=== PATIENT | female | born 1980 | race Caucasian/White ===

== ENCOUNTER 2017-02-18 19:52 | Emergency (ER) | payer OTHER ==
--- NOTE | 2017-02-18 20:06 | EDPHY ---
H & P Time Seen by Provider: 02/18/17 19:55 HPI/ROS: CHIEF COMPLAINT: "I think I am throwing up blood" HISTORY OF PRESENT ILLNESS: 36-year-old homeless female arrives via ambulance complaining of 2 days of dark colored emesis and epigastric discomfort. She was getting off of the city bus, an ambulance was nearby and she hailed the ambulance. She is complaining of 2 days of epigastric and left upper quadrant pain with intermittent vomiting and nausea. No radiation of pain. No back pain. No lower abdominal pain. Bowel movements have been normal with no discoloration, no melena, no hematochezia, no diarrhea. PRIMARY CARE PROVIDER:none REVIEW OF SYSTEMS: A ten point review of systems was performed and is negative with the exception of the items mentioned in the HPI PAST MEDICAL & SURGICAL HISTORY: Anemia, alcoholism, cholecystectomy SOCIAL HISTORY: homeless. Traveling from [place] to [place]. PHYSICAL EXAM (Prior to examination, patient consented to physical exam, hands were washed and my usual and customary physical exam procedures followed) 1) GENERAL: Well-developed, well-nourished, alert and oriented. Appears nontoxic. 2) HEAD: Normocephalic, atraumatic 3) HEENT: Pupils equal, round, reactive to light bilaterally. Sclera anicteric. Nasopharynx, oropharynx, clear, no lesions. Moist mucous membranes Ears bilaterally with normal tympanic membranes. 4) NECK: Full range of motion, no meningeal signs. 5) LUNGS: Clear auscultation bilaterally, no wheezes, no rhonchi, no retractions. 6) HEART: Regular rate and rhythm, no murmur, no heave, no gallop. 7) ABDOMEN: tender to palpation left upper quadrant and epigastrium. No guarding, no rebound, no focal tenderness, negative McBurney's, negative Barragan' s, negative Rovsing's, negative peritoneal sign, 8) MUSCULOSKELETAL: Moving all extremities, no focal areas of tenderness, no obvious trauma. No peripheral edema or discoloration. 9) BACK: No CVA tenderness, no midline vertebral tenderness, no fluctuance, no step-off, no obvious trauma, no visual or palpable abnormality. 10) SKIN: No rash, no petechiae. 11)RECTAL (with female nurse Moni at bedside): Normal rectal tone, brown stool on glove. DIFFERENTIAL DIAGNOSIS: In no particular order, including but not limited to biliary colic, cholecystitis, peptic ulcer disease, pancreatitis, and gastroenteritis. This is a partial list of diagnoses considered. These considerations are based on history, physical exam, past history and reassessment. Constitutional: Initial Vital Signs Temperature (C) 36.9 C 02/18/17 19:52 Heart Rate 93 02/18/17 19:52 Respiratory Rate 20 02/18/17 19:52 Blood Pressure 133/77 H 02/18/17 19:52 O2 Sat (%) 98 02/18/17 19:52 O2 Delivery Mode Room Air Allergies/Adverse Reactions: No Known Allergies Allergy (Verified 02/18/17 20:11) Home Medications: Medication Instructions Recorded NK [No Known Home Meds] 02/18/17 Medical Decision Making ED Course/Re-evaluation: 8:07 p.m.: I reviewed the patient's medical records from emergency department visit prescription [facility] dated 5 days ago which point she complained of similar symptoms, she is anemic at that time with H&H of 7.1 and 25.4 9:55 p.m.: Patient has been re-evaluated with serial exam she has been observed ambulating around the emergency department requesting to leave. She remains normotensive, normal heart rate. I reviewed with her her continued anemia today which I think is subacute, she has negative stool occult blood and has had no vomiting in the emergency department. She has been given GI cocktail and feels resolution of her epigastric discomfort. Doubt cardiac etiology. Doubt acute pancreatitis. Think she can be discharged however have informed her that she needs [facility] Care and management in consultation with primary supervising physician Dr Ely . - Data Points Laboratory Results: Laboratory Results 02/18/17 20:07 02/18/17 20:07 02/18/17 02/18/17 02/18/17 20:21 20:07 20:07 WBC RBC Hgb Hct MCV MCH MCHC RDW Plt Count MPV Neut % (Auto) Lymph % (Auto) [place] % (Auto) Eos % (Auto) Baso % (Auto) Nucleat RBC Rel Count Absolute Neuts (auto) Absolute Lymphs (auto) Absolute Monos (auto) Absolute Eos (auto) Absolute Basos (auto) Absolute Nucleated RBC Immature Gran % Immature Gran # Sodium 136 mEq/L mEq/L (134-144) Potassium 4.4 mEq/L mEq/L (3.5-5.2) Chloride 101 mEq/L mEq/L (97-110) Carbon Dioxide 22 mEq/l mEq/l (22-31) Anion Gap 13 mEq/L mEq/L (8-16) BUN 14 mg/dL mg/dL (7-23) Creatinine 0.8 mg/dL mg/dL (0.6-1.0) Estimated GFR > 60 Glucose 95 mg/dL mg/dL (70-100) Calcium 9.5 mg/dL mg/dL (8.5-10.4) Total Bilirubin 0.3 mg/dL mg/dL (0.1-1.4) Conjugated Bilirubin 0.2 mg/dL mg/dL (0.0-0.5) Unconjugated Bilirubin 0.1 mg/dL mg/dL (0.0-1.1) AST 100 IU/L H IU/L (14-46) ALT 56 IU/L H IU/L (9-52) Alkaline Phosphatase 184 IU/L H IU/L (38-126) Total Protein 7.9 g/dL g/dL (6.3-8.2) Albumin 3.9 g/dL g/dL (3.5-5.0) Lipase 460 IU/L H IU/L (23-300) Beta HCG, Qual NEGATIVE Stool Occult Bld Scrn NEGATIVE (NEGATIVE) 02/18/17 20:07 WBC 7.99 10^3/uL 10^3/uL (3.80-9.50) RBC 3.35 10^6/uL L 10^6/uL (4.18-5.33) Hgb 7.9 g/dL L g/dL (12.6-16.3) Hct 27.0 % L % (38.0-47.0) MCV 80.6 fL L fL (81.5-99.8) MCH 23.6 pg L pg (27.9-34.1) MCHC 29.3 g/dL L g/dL (32.4-36.7) RDW 18.6 % H % (11.5-15.2) Plt Count 413 10^3/uL H 10^3/uL (150-400) MPV 10.2 fL fL (8.7-11.7) Neut % (Auto) 62.7 % % (39.3-74.2) Lymph % (Auto) 19.1 % % (15.0-45.0) [place] % (Auto) 12.3 % % (4.5-13.0) Eos % (Auto) 3.6 % % (0.6-7.6) Baso % (Auto) 1.8 % H % (0.3-1.7) Nucleat RBC Rel Count 0.0 % % (0.0-0.2) Absolute Neuts (auto) 5.01 10^3/uL 10^3/uL (1.70-6.50) Absolute Lymphs (auto) 1.53 10^3/uL 10^3/uL (1.00-3.00) Absolute Monos (auto) 0.98 10^3/uL H 10^3/uL (0.30-0.80) Absolute Eos (auto) 0.29 10^3/uL 10^3/uL (0.03-0.40) Absolute Basos (auto) 0.14 10^3/uL H 10^3/uL (0.02-0.10) Absolute Nucleated RBC 0.00 10^3/uL 10^3/uL (0-0.01) Immature Gran % 0.5 % % (0.0-1.1) Immature Gran # 0.04 10^3/uL 10^3/uL (0.00-0.10) Sodium Potassium Chloride Carbon Dioxide Anion Gap BUN Creatinine Estimated GFR Glucose Calcium Total Bilirubin Conjugated Bilirubin Unconjugated Bilirubin AST ALT Alkaline Phosphatase Total Protein Albumin Lipase Beta HCG, Qual Stool Occult Bld Scrn Medications Given: Discontinued Medications Al Hydroxide/Mg Hydroxide (Maalox Susp) 30 ml PO ONCE ONE Stop: 02/18/17 20:15 Last Admin: 02/18/17 20:21 Dose: 30 ml Hyoscyamine Sulfate (Levsin, Hyomax-Sl) 0.25 mg PO ONCE ONE Stop: 02/18/17 20:15 Last Admin: 02/18/17 20:22 Dose: 0.25 mg Lidocaine (Lidocaine 2% Viscous) 15 ml PO ONCE ONE Stop: 02/18/17 20:15 Last Admin: 02/18/17 20:21 Dose: 15 ml Lorazepam (Ativan Injection) 1 mg IVP EDNOW ONE Stop: 02/18/17 20:16 Last Admin: 02/18/17 20:22 Dose: 1 mg Ondansetron HCl (Zofran) 4 mg IVP EDNOW ONE Stop: 02/18/17 20:15 Last Admin: 02/18/17 20:22 Dose: 4 mg Departure - Departure Disposition: Home, Routine, Self-Care Clinical Impression: Alcoholism Anemia Qualifiers: Anemia type: unspecified type Qualified Code(s): D64.9 - Anemia, unspecified Condition: Good Instructions: Anemia (ED) Additional Instructions: Please consider long-term sobriety from alcohol. You are anemic and you need further evaluation for this. [facility] [place] as directed in your discharge instructions. Referrals: [facility],. [Clinic] - 1 day without fail
[2017-02-18] MEDS ORDERED: MAG HYDROX/AL HYDROX/SIMETH 30 ML UDCUP PO ONE (20:14)
[2017-02-18] MEDS ORDERED: ONDANSETRON 4 MG/2 ML VIAL IVP ONE (20:14)
[2017-02-18] MEDS ORDERED: HYOSCYAMINE SULFATE 0.125 MG TAB PO ONE (20:14)
[2017-02-18] MEDS ORDERED: LIDOCAINE 2% VISCOUS 15 ML UDCUP PO ONE (20:14)
[2017-02-18] MEDS ORDERED: LORazepam 2 MG/ML INJ IVP ONE (20:15)
[2017-02-18 20:27] LABS: % IMMATURE GRANULYOCYTES 0.5 % (0.0-1.1); ABSOLUTE IMMATURE GRANULOCYTES 0.04 10^3/uL (0.00-0.10); ADD DIFF? NO; ADD MORPH? NO; ADD SCAN? NO; ATYPICAL LYMPHOCYTE FLAG 10 (0-99); FRAGMENT RBC FLAG 20 (0-99); HEMOGLOBIN 7.9 g/dL (12.6-16.3); LEFT SHIFT FLG 0 (0-99); LIPEMIA HEMOLYSIS FLAG 70 (0-99); MEAN CELL HEMOGLOBIN 23.6 pg (27.9-34.1); MEAN CELL HEMOGLOBIN CONCENTR. 29.3 g/dL (32.4-36.7); MEAN CELL VOLUME 80.6 fL (81.5-99.8); MEAN PLATELET VOLUME 10.2 fL (8.7-11.7); PLATELET CLUMPS FLAG 0 (0-99); PLATELET COUNT 413 10^3/uL (150-400); RED BLOOD CELL COUNT 3.35 10^6/uL (4.18-5.33); RED CELL DISTRIBUTION WIDTH 18.6 % (11.5-15.2)
[2017-02-18 20:42] LABS: ALANINE AMINOTRANSFERASE 56 IU/L (9-52); ALBUMIN 3.9 g/dL (3.5-5.0); ALKALINE PHOSPHATASE 184 IU/L (38-126); ANION GAP 13 mEq/L (8-16); ASPARTATE AMINOTRANSFERASE 100 IU/L (14-46); BILIRUBIN,TOTAL 0.3 mg/dL (0.1-1.4); BILIRUBIN-CONJUGATED 0.2 mg/dL (0.0-0.5); BILIRUBIN-UNCONJUGATED 0.1 mg/dL (0.0-1.1); CALCIUM 9.5 mg/dL (8.5-10.4); CARBON DIOXIDE 22 mEq/l (22-31); CHLORIDE 101 mEq/L (97-110); CREATININE 0.8 mg/dL (0.6-1.0); GLOMERULAR FILTRATION RATE > 60; GLUCOSE 95 mg/dL (70-100); POTASSIUM 4.4 mEq/L (3.5-5.2); SODIUM 136 mEq/L (134-144); TOTAL PROTEIN 7.9 g/dL (6.3-8.2)
[2017-02-18 22:04] VITALS: BP 102/56; PULSE 94; RESP 16; TEMP 98.2; O2SAT 96
== END 2017-02-18 22:04 | disposition home or self-care (01) ==
DX: D64.9 Anemia, unspecified (principal); F10.20 Alcohol dependence, uncomplicated; Z90.49 Acquired absence of other specified parts of digestive tract
CPT/HCPCS: 96374; J2060; J2405

== ENCOUNTER 2017-02-19 08:53 | Emergency (ER) | payer OTHER ==
[2017-02-19 08:59] VITALS: RESP 16; TEMP 98.4
[2017-02-19] MEDS ORDERED: chlordiazePOXIDE 25 MG CAP PO ONE (10:02)
[2017-02-19] MEDS ORDERED: CHLORDIAZEPOXIDE 25MG PREPK#6 BTL TAKEHOME ONE (10:02)
--- NOTE | 2017-02-19 10:03 | EDPHY ---
H & P Stated Complaint: ETOH withdrawl Source: Patient Exam Limitations: No limitations - Personal History Current Tetanus/Diphtheria Vaccine: Yes Current Tetanus Diphtheria and Acellular Pertussis (TDAP): Yes - Medical/Surgical History Hx Asthma: No Hx Chronic Respiratory Disease: No Hx Diabetes: No Hx Cardiac Disease: No Hx Renal Disease: No Hx Cirrhosis: No Hx Alcoholism: Yes Hx HIV/AIDS: No Hx Splenectomy or Spleen Trauma: No Other PMH: Cholycystectomy, HEP C, Pancreatitis, Gastritis - Social History Smoking Status: Current every day smoker HPI/ROS: CHIEF COMPLAINT: Alcohol withdrawal HISTORY OF PRESENT ILLNESS: Patient complains of alcohol withdrawal symptoms. She says that she normally drinks a 5th of liquor per day. Over the past few days she has had less money and thus had less alcohol. Last intake was last night around 7:00 p.m.. She is traveling from [place] to [place]. She has no chest pain, but she does complain of feeling shaky and sweaty and the need to have a drink. She has no shortness of breath. No trauma or injury. No headache. No complaints consistent with illness. She is here asking for help with withdrawal symptoms. No other associated complaints or modifying factors. REVIEW OF SYSTEMS: Ten systems reviewed and are negative unless otherwise noted in the HPI PAST MEDICAL HISTORY: Hep C without treatment PAST SURGICAL HISTORY: None SOCIAL HISTORY: Smoker. Heavy alcohol intake daily. Marijuana use. Currently homeless. Traveling from [place] to [place] FAMILY HISTORY: Noncontributory EXAMINATION General Appearance: Alert, no distress, unkempt Head: normocephalic, atraumatic Eyes: Pupils equal and round, no conjunctival pallor or injection ENT, Mouth: Mucous membranes moist Neck: Normal inspection, supple, non-tender Respiratory: Lungs are clear to auscultation. No wheezing, rhonchi or crackles Cardiovascular: Regular rate and rhythm. No murmur Gastrointestinal: Abdomen is soft and nontender Back: non-tender, no bony abnormalities Neurological: GCS 15. A&O, nonfocal, normal gait. Strength is symmetric in all 4 limbs. Normal [id number] Skin: Warm and dry, no rash. No petechiae or purpura Extremities: Nontender, no pedal edema Psychiatric: Mood and affect normal DIFFERENTIAL DIAGNOSES: Including but not limited to alcoholism, alcohol withdrawal, homelessness MDM: 10:00 a.m. Alcoholism with abrupt cessation last night. There is no evidence of delirium tremens. She does have evidence of mild withdrawal symptoms. I have ordered Librium. She has no chest pain. Vital signs were well within normal limits. She is homeless and has not eaten, thus I will ask for food tray. She is agreeable with going to the [facility] for Librium protocol. She is in no acute distress. 10:23 a.m. Patient is feeling much better after eating. Librium he was just administered. She is agreeable with being discharged to the [facility] with a Librium taper per protocol. She has no encephalopathy or evidence of DT. She is comfortable with this plan and discharged in stable condition. [facility] information provided. ED precautions discussed. (Palmer Davidson) Constitutional: Initial Vital Signs Temperature (C) 36.9 C 02/19/17 08:55 Heart Rate 78 02/19/17 08:55 Respiratory Rate 16 02/19/17 08:55 Blood Pressure 134/79 H 02/19/17 08:55 O2 Sat (%) 97 02/19/17 08:55 O2 Delivery Mode Room Air Allergies/Adverse Reactions: No Known Allergies Allergy (Unverified 02/19/17 08:55) Home Medications: Medication Instructions Recorded NK [No Known Home Meds] 02/18/17 NK [No Known Home Meds] 02/19/17 Medical Decision Making ED Course/Re-evaluation: The patient was evaluated and managed by the physician support assistant. I have reviewed this chart and I agree with the findings and plan of care as documented , as indicated by my signature. I am the secondary supervising physician. ( Babita Thomas) - Data Points Medications Given: Discontinued Medications Chlordiazepoxide (Librium 25 Mg Prepack#6) 1 btl TAKEHOME EDNOW ONE Stop: 02/19/17 10:03 Last Admin: 02/19/17 10:14 Dose: 1 btl Chlordiazepoxide HCl (Librium) 25 mg PO EDNOW ONE Stop: 02/19/17 10:03 Last Admin: 02/19/17 10:14 Dose: 25 mg Departure - Departure Disposition: Home, Routine, Self-Care Clinical Impression: Alcohol dependence, Alcohol withdrawal without perceptual disturbances Condition: Good Instructions: Chlordiazepoxide (By mouth), Abuse of Alcohol (ED), Alcohol Withdrawal (ED) Additional Instructions: 1. [facility] 2. ED precautions Referrals: Patient,NotPresent [Primary Care Provider] - As per Instructions [facility],. [Clinic] - As per Instructions Waleska Farris MD [Medical Doctor] - As per Instructions
[2017-02-19 10:57] VITALS: BP 148/90; PULSE 85; O2SAT 95
== END 2017-02-19 11:08 | disposition home or self-care (01) ==
LOC: EDUNIT#
DX: F10.230 Alcohol dependence with withdrawal, uncomplicated (principal); F17.200 Nicotine dependence, unspecified, uncomplicated

== ENCOUNTER 2017-02-25 11:59 | Emergency (ER) | payer MEDICAID, OTHER ==
[2017-02-25 12:03] VITALS: BP 117/65; PULSE 96; RESP 16; TEMP 98.2; O2SAT 91
[2017-02-25] MEDS ORDERED: CHLORDIAZEPOXIDE 25MG PREPK#6 BTL TAKEHOME ONE (12:12)
--- NOTE | 2017-02-25 12:12 | EDPHY ---
Addendum entered and electronically signed by Michelle Huitron MD 02/25/17 14 :40: The patient was evaluated and managed by the physician's guest services assistant. My cosignature indicates that I reviewed the chart and I agree with the findings and plan of care as documented. I am the secondary supervising physician. Original Note: H & P Stated Complaint: CI HPI/ROS: CHIEF COMPLAINT: Acute alcohol intoxication HISTORY OF PRESENT ILLNESS: Patient arrives by EMS from the [facility] due to acute alcohol intoxication and inability to ambulate. She complains that her legs are too heavy to ambulate with. She says she has no numbness or tingling but has difficulty moving them. She tells this while moving both of her legs in her bed. She has no trauma or injury. She does admit to heavy alcohol use. She is currently homeless. She traveling from [place] to [place]. I evaluated this patient recently for the same complaints. She has no complaints of pain. No other associated complaints or modifying factors. EMS was contacted as she tried to present herself, but 2 difficulty ambulating the center here. REVIEW OF SYSTEMS: Ten systems reviewed and are negative unless otherwise noted in the HPI PCP: [facility] SPECIALISTS: None PAST MEDICAL HISTORY: Alcoholism, migraines PAST SURGICAL HISTORY: Does not recall SOCIAL HISTORY: Homeless. Daily smoker. Daily alcohol user. Currently living in the home [facility]. Originally from [place]. FAMILY HISTORY: Noncontributory EXAMINATION General Appearance: Alert, no distress, unkempt Head: normocephalic, atraumatic Eyes: Pupils equal and round, no conjunctival pallor or injection ENT, Mouth: Mucous membranes moist. poor dentition. airway widely patent Neck: Normal inspection, supple, non-tender Respiratory: Lungs are clear to auscultation Cardiovascular: Regular rate and rhythm Gastrointestinal: Abdomen is soft and nontender Back: non-tender, no bony abnormalities Neurological: GCS 15. A&O, nonfocal, strength is symmetric in all 4 limbs. No footdrop. No pronator drift. Skin: Warm and dry, no rash. Unclean skin. No abscesses lacerations. Extremities: Nontender, no pedal edema. Symmetric range of motion of both legs. Neurovascular intact distally with DP and PT pulses intact Psychiatric: Mood and affect normal DIFFERENTIAL DIAGNOSES: Including but not limited to alcoholism, acute alcohol intoxication, dehydration , weakness MDM: 12:10 p.m. Acute alcohol intoxication in an alcoholic patient. She does not exhibit any signs of withdrawal or delirium tremens. She is stable in no acute distress. She was sent here as she was too intoxicated to go to the [facility]. She says that her legs are too heavy for her to walk right now. Examination is unremarkable however. Neuro examination is normal. Monitor and send to the [facility] when ambulatory. She will be placed on pulse oximetry and nasal cannula due to hypoxia when she falls asleep. This corrects itself on room air when she is awake. 1:10 p.m. Patient re-evaluated. She sleeping. Still not fully ambulatory on own 2:30 p.m. Patient re-evaluated. She is sleeping but wakes easily. 2:55 p.m. Notified by RN that the patient is now awake, alert and ambulating. I did witness this myself. She is ambulating with a steady gait. She is conversing appropriately. She is clinically sober. She is declining transfer to the [facility]. I will cancel the order for the p.o. Librium taper. She will be discharged to her own care as well as to the care for spouse who is with her and not intoxicated. They are leaving on foot and do not even own a vehicle. She informed us that she will be taking the bus [place] she is to follow up with primary care physician and return here for any concerns further. Source: Patient, RN/MD Exam Limitations: No limitations - Personal History LMP (Females 10-55): 8-14 Days Ago Current Tetanus/Diphtheria Vaccine: Unsure Current Tetanus Diphtheria and Acellular Pertussis (TDAP): Unsure - Medical/Surgical History Hx Asthma: No Hx Chronic Respiratory Disease: No Hx Diabetes: No Hx Cardiac Disease: No Hx Renal Disease: No Hx Cirrhosis: No Hx Alcoholism: Yes Hx HIV/AIDS: No Hx Splenectomy or Spleen Trauma: No Other PMH: Cholycystectomy, HEP C, Pancreatitis, Gastritis - Social History Smoking Status: Current every day smoker Constitutional: Initial Vital Signs Temperature (C) 98.2 F 02/25/17 12:01 Heart Rate 96 02/25/17 12:01 Respiratory Rate 16 02/25/17 12:01 Blood Pressure 117/65 02/25/17 12:01 O2 Sat (%) 91 L 02/25/17 12:01 O2 Delivery Mode Room Air Allergies/Adverse Reactions: No Known Allergies Allergy (Unverified 02/19/17 08:55) Home Medications: Medication Instructions Recorded NK [No Known Home Meds] 02/18/17 NK [No Known Home Meds] 02/19/17 Departure - Departure Disposition: Home, Routine, Self-Care Clinical Impression: Alcoholic intoxication Qualifiers: Complication of substance-induced condition: uncomplicated Qualified Code(s): F10.920 - Alcohol use, unspecified with intoxication, uncomplicated Alcohol dependence Qualifiers: Substance use status: uncomplicated Qualified Code(s): F10.20 - Alcohol dependence, uncomplicated Condition: Good Instructions: Alcohol Intoxication (ED), Abuse of Alcohol (ED) Additional Instructions: 1. Librium protocol per arc 2. Follow up primary care physician Referrals: Julian Rubalcava MD [Medical Doctor] - As per Instructions NONE *PRIMARY CARE P,. [Primary Care Provider] - As per Instructions [facility],. [Clinic] - As per Instructions [facility] 24 Hours [Outside] - As per Instructions
--- NOTE | 2017-02-25 15:35 | ASMTCMCOM ---
CM Note CM Note Notes: Spoke with patient and her partner, Marcin, at bedside. Marcin arrived as an ED patient today as well, he had told staff nurse anesthetist "some firebreak cutter or EMT john told me to call 911 and tell them I have chest pain or ankle pain so that I can get here." They have both been in the ED a few times this past week for ETOH related issues. Patient has been discharged to Withdrawal Management at [facility] ([facility]) in the past but she refuses to go to the there now. Patient and Marcin state they do not plan to quit drinking until they get to [place]. Originally from [place], they are on their way to [place] where Marcin says he has a friend who is going to let them stay with him and help them get sober. They ran out of money recently and Marcin says once he gets money deposited into his account on 02/27 and he will buy bus passes to [place]. They are staying out of a tent near the care home and say they have "plenty of blankets." When asked about their recent visits for alcohol withdrawal, related to running out of money, and how they were going to pay for alcohol for the next two days so that they don't go into withdrawal, Marcin said "we have plenty in the tent and if need be, we'll greene handle." This CM strongly encouraged them to seek treatment at program but they are not interested and want to be discharged to go back to their tent. They are requesting bus passes but were not providing any due to limited availability. They are both able to walk. Date Signed: 02/25/2017 03:34 PM Electronically Signed By:Samira Benitez RN
--- NOTE | 2017-02-25 16:29 | ASDISCHSUM ---
Discharge Information Plan Status:Homeless/Snf Medically Cleared to Leave: Discharge Date:02/25/2017 03:02 PM CM D/C Disposition:Home, Routine, Self-Care ADT D/C Disposition:Home, Routine, Self-Care Projected Discharge Date:02/25/2017 03:02 PM Transportation at D/C:Self Discharge Delay Reason: Follow-Up Date:02/25/2017 03:02 PM Discharge Slot: Final Diagnosis: Placement Information Patient Contact Information Contact Name:CHLOEEDUARDO Relationship: Address: Home Phone: Work Phone: City: Alternate Phone: State/Zip Code: Email: Financial Information Financial Class:HMO and PPO Plans Primary Plan Desc:[employer] Primary Plan Number:[id number] Secondary Plan Desc: Secondary Plan Number: Assessment Information [facility] CM Progress Note CM Note CM Note Notes: Spoke with patient and her partner, Marcin, at bedside. Marcin arrived as an ED patient today as well, he had told rn staff "some fire alarm mechanic or EMT john told me to call 911 and tell them I have chest pain or ankle pain so that I can get here." They have both been in the ED a few times this past week for ETOH related issues. Patient has been discharged to Withdrawal Management at [facility] ([facility]) in the past but she refuses to go to the there now. Patient and Marcin state they do not plan to quit drinking until they get to [place]. Originally from [place], they are on their way to [place] where Marcin says he has a friend who is going to let them stay with him and help them get sober. They ran out of money recently and Marcin says once he gets money deposited into his account on 02/27 and he will buy bus passes to [place]. They are staying out of a tent near the long-term and say they have "plenty of blankets." When asked about their recent visits for alcohol withdrawal, related to running out of money, and how they were going to pay for alcohol for the next two days so that they don't go into withdrawal, Marcin said "we have plenty in the tent and if need be, we'll greene handle." This CM strongly encouraged them to seek treatment at program but they are not interested and want to be discharged to go back to their tent. They are requesting bus passes but were not providing any due to limited availability. They are both able to walk. Date Signed: 02/25/2017 03:34 PM Electronically Signed By:Samira Benitez RN Intervention Information
== END 2017-02-25 15:02 | disposition home or self-care (01) ==
LOC: EDUNIT#
DX: F10.229 Alcohol dependence with intoxication, unspecified (principal); F17.200 Nicotine dependence, unspecified, uncomplicated